=== PATIENT | male | born 2000 | race Caucasian/White ===

== ENCOUNTER → 2021-03-06 | Outpatient (CLI) | payer OTHER ==
--- NOTE | 2021-03-06 10:49 | PFTRPT ---
Site: [facility], [address] [place] [address], [id number] ID: [id number] Name: YAN DE Visit Date: 03/06/2021 Second ID: [id number] Referring Doctor: Bethany Rodriguez Reviewing Doctor: Paul Ram MD [employer]: Blade RONDON RRT Age: 20 : 2000 Sex: Male Race: Height: 71.00 Inches Weight: 207.00 Lbs BSA: 2.14 Order IDs: [id number] Requested Test(s): <RESP-PFT.PFT B/A> Diagnosis: SOB test meet the ATS standards for acceptability and repeatability. Pt was given four puffs of albuterol for post bronchodilator. Review Status: Not Reviewed Pre-Bronch Post-Bronch Pred Actual %Pred Actual %Chng SPIROMETRY FVC (L) 5.77 6.36 110 6.56 3 FEV1 (L) 4.79 4.85 101 5.46 12 FEV1/FVC (%) 84 76 90 83 9 FEF 25% (L/sec) 8.90 7.30 82 8.66 18 FEF 50% (L/sec) 6.09 4.78 78 6.22 30 FEF 75% (L/sec) 2.42 2.31 95 3.40 47 FEF 25-75% (L/sec) 5.03 4.25 84 5.66 33 FEF Max (L/sec) 10.33 8.18 79 10.08 23 FIVC (L) 6.16 6.33 2 FIF 50% (L/sec) 5.74 6.57 114 8.45 28 FIF Max (L/sec) 6.58 8.73 32 MVV (L/min) 193 126 65 Expiratory Time (sec) 6.51 6.65 2 Back Extrap Vol (L) 0.12 0.13 11 Time To FEFmax (sec) 0.111 0.071 -35 LUNG VOLUMES SVC (L) 5.59 6.35 113 IC (L) 3.66 5.27 144 ERV (L) 1.93 1.08 56 TGV (L) 3.41 4.33 126 RV (Pleth) (L) 1.48 3.25 219 TLC (Pleth) (L) 7.07 9.60 135 RV/TLC (Pleth) (%) 20 34 169 DIFFUSION DLCOunc (ml/min/mmHg) 37.84 39.23 103 DL/VA (ml/min/mmHg/L) 5.35 4.74 88 VA (L) 7.07 8.27 117 BHT (sec) 9.72 IVC (L) 6.23 TLC (SB) (L) 8.42 AIRWAYS RESISTANCE Raw (cmH2O/L/s) 1.45 0.67 46 Gaw (L/s/cmH2O) 1.03 1.50 145 sRaw (cmH2O*s) 4.76 3.00 63 sGaw (1/cmH2O*s) 0.20 0.33 166
== END ==
LOC: M CARPUL 10:11
PROVIDERS: ATTEND Physician Assistant
DX: R06.00 Dyspnea, unspecified (principal)

== ENCOUNTER 2022-01-17 09:46 | Day surgery (SDC) | payer OTHER ==
[~2022-01-17] VITALS: Ht 180.3 cm; Wt 105.6 kg
[2022-01-17] MEDS ORDERED: LR 1,000 ML IV SCH ×2 (10:00→12:20)
[2022-01-17] MEDS ORDERED: ceFAZolin SOD 2 GM in IV 1 EA IV ONE (10:30)
[2022-01-17] MEDS ORDERED: LIDOCAINE 2% 100MG/5ML SDV (FOR ANES.) As Ordered ONE (10:45)
[2022-01-17] MEDS ORDERED: MIDAZOLAM 5MG/ML 1ML VIAL (J2250 PER 1MG) As Ordered ONE (10:45)
[2022-01-17] MEDS ORDERED: propofoL 200 MG/20 ML VIAL As Ordered ONE (10:45)
[2022-01-17] MEDS ORDERED: KETOROLAC 60MG 2ML VIAL As Ordered ONE (10:45)
[2022-01-17] MEDS ORDERED: ONDANSETRON 4MG 2ML VIAL As Ordered ONE (10:45)
[2022-01-17] MEDS ORDERED: fentaNYL 100 MCG/2 ML INJECTION As Ordered ONE ×2 (10:45→11:42)
[2022-01-17] MEDS ORDERED: dexameTHASONE 4 MG/ML 1ML VIAL (J1100 PER 1MG) As Ordered ONE (10:45)
[2022-01-17] MEDS ORDERED: BACITRACIN OINTMENT 30GM TUBE As Ordered ONE (10:46)
[2022-01-17] MEDS ORDERED: ePHEDrine SULFATE 25 MG/5 ML(5MG/ML) SYRINGE As Ordered ONE (11:08)
[2022-01-17] MEDS ORDERED: ACETAMINOPHEN 1000MG 100ML IV BTL (OFIRMEV) (J0131 PER 10MG) As Ordered ONE (11:15)
[2022-01-17] MEDS ORDERED: DESFLURANE 240 ML INHALANT As Ordered ONE (12:02)
[2022-01-17] MEDS ORDERED: ONDANSETRON 4MG 2ML VIAL IV PRN (12:20)
[2022-01-17] MEDS ORDERED: fentaNYL 100 MCG/2 ML INJECTION IV PRN (12:20)
[2022-01-17] MEDS ORDERED: oxyCODONE 5MG TAB PO PRN (12:20)
[2022-01-17] MEDS ORDERED: OXYC1TAB23 PO (12:46)
[2022-01-17] MEDS ORDERED: PERCOCET 5MG/325MG TAB PO PRN (14:00)
[2022-01-17 14:25] VITALS: BP 125/57
== END 2022-01-17 14:30 | disposition home or self-care (01) ==
LOC: M SDC 09:46
PROVIDERS: ATTEND Urology
DX: N48.1 Balanitis (principal); L73.9 Follicular disorder, unspecified; F17.210 Nicotine dependence, cigarettes, uncomplicated
CPT/HCPCS: 54161; 88304; J0131; J0690; J1100; J1885; J2250; J2405; J3010